=== PATIENT | female | born 1950 | race Caucasian/White ===

== ENCOUNTER 2017-03-12 14:22 | Emergency (ER) | payer MEDICARE, OTHER ==
[~2017-03-12] VITALS: Ht 160 cm; Wt 62.0 kg
[2017-03-12 14:24] VITALS: BP 133/73; PULSE 74; RESP 17; TEMP 97.8; O2SAT 96
[2017-03-12] MEDS ORDERED: OMEP20CA2 PO (16:35)
--- NOTE | 2017-03-12 16:37 | PD ---
HPI Chief Complaint: Respiratory Symptoms Time Seen by Provider: 16:33 Travel History International Travel<30 days: No Contact w/Intl Traveler<30days: No History of Present Illness HPI 66-year-old female presents to the emergency department for evaluation of cough , congestion, shortness of breath that started approximately 10 days ago. She states she went to an urgent care center 1 week ago and was given a prescription for an antibiotic which sounds like it is azithromycin, Z-Juma. Patient denies any fevers or chills. She has no chest pain. Patient reports diffuse mild abdominal pain. No diarrhea. No nausea or vomiting. Patient reports history of hereditary liver cirrhosis, COPD, GERD. Patient states that she has no albuterol inhaler, has not used in several days. Patient states that she came from [place] approximately 6 weeks ago. She states that she cannot live in the house that she is currently a due to to any people that live there and she believes that is how she became sick. PFSH Past Medical History Arthritis: Yes Medical other: Yes (cirrhos, high iron) Respiratory: Yes Tetanus Vaccination: < 5 Years Influenza Vaccination: Yes ?: Not Past Surgical History Hysterectomy: Yes Social History Alcohol Use: No Tobacco Use: Yes (1 ppd 3 hrs ago) Substance Use: No Allergies-Medications (Allergen,Severity, Reaction): Coded Allergies: Contrast Media (Verified Allergy, Severe, sob, hives, 03/12/17) Reported Meds & Prescriptions Reported Meds & Active Scripts Active Reported Omeprazole 20 Mg Cap Mg PO DAILY Review of Systems Except as stated in HPI: all other systems reviewed are Neg Physical Exam Narrative GENERAL: Well-nourished, well-developed female patient, ambulatory. Afebrile. SKIN: Focused skin assessment warm/dry. HEAD: Normocephalic. Atraumatic. EYES: No scleral icterus. No injection or drainage. NECK: Supple, trachea midline. No JVD or lymphadenopathy. CARDIOVASCULAR: Regular rate and rhythm without murmurs, gallops, or rubs. RESPIRATORY: Breath sounds equal bilaterally. No accessory muscle use. Lungs sounds diminished with expiratory wheezes noted GASTROINTESTINAL: Abdomen soft, non-tender, nondistended. No abdominal pain to palpation. MUSCULOSKELETAL: No cyanosis, or edema. BACK: Nontender without obvious deformity. No CVA tenderness. Data Data Last Documented VS Vital Signs Date Time Temp Pulse Resp B/P Pulse Ox O2 Delivery O2 Flow Rate FiO2 03/12/17 16:43 99 03/12/17 16:43 60 03/12/17 14:24 97.8 17 133/73 Orders Complete Blood Count With Diff (03/12/17 16:31) Comprehensive Metabolic Panel (03/12/17 16:31) Magnesium (Mg) (03/12/17 16:31) Ckmb (Isoenzyme) Profile (03/12/17 16:31) Troponin I (03/12/17 16:31) Urinalysis - C+S If Indicated (03/12/17 16:31) Iv Access Insert/Monitor (03/12/17 16:31) Electrocardiogram (03/12/17 16:31) Ecg Monitoring (03/12/17 16:31) Oximetry (03/12/17 16:31) Oxygen Administration (03/12/17 16:31) Chest, Single Ap (03/12/17 16:31) Sodium Chloride 0.9% Flush (Ns Flush) (03/12/17 16:45) Methylprednisolone So Succ Inj (Solumedr (03/12/17 16:45) Albuterol-Ipratropium Neb (Duoneb Neb) (03/12/17 16:45) Lipase (03/12/17 16:31) CKMB (03/12/17 17:07) CKMB% (03/12/17 17:07) Labs Laboratory Tests Test 03/12/17 17:07 White Blood Count 6.2 TH/MM3 Red Blood Count 3.65 MIL/MM3 Hemoglobin 12.8 GM/DL Hematocrit 38.0 % Mean Corpuscular Volume 104.2 FL Mean Corpuscular Hemoglobin 35.0 PG Mean Corpuscular Hemoglobin 33.6 % Concent Red Cell Distribution Width 15.5 % Platelet Count 67 TH/MM3 Mean Platelet Volume 10.5 FL Neutrophils (%) (Auto) 38.9 % Lymphocytes (%) (Auto) 46.2 % Monocytes (%) (Auto) 8.5 % Eosinophils (%) (Auto) 5.5 % Basophils (%) (Auto) 0.9 % Neutrophils # (Auto) 2.4 TH/MM3 Lymphocytes # (Auto) 2.9 TH/MM3 Monocytes # (Auto) 0.5 TH/MM3 Eosinophils # (Auto) 0.3 TH/MM3 Basophils # (Auto) 0.1 TH/MM3 CBC Comment AUTO DIFF Differential Comment AUTO DIFF CONFIRMED Platelet Estimate LOW Platelet Morphology Comment NORMAL Urine Color YELLOW Urine Turbidity HAZY Urine pH 5.0 Urine Specific [place] 1.014 Urine Protein NEG mg/dL Urine Glucose (UA) NEG mg/dL Urine Ketones NEG mg/dL Urine Occult Blood SMALL Urine Nitrite NEG Urine Bilirubin NEG Urine Urobilinogen LESS THAN 2.0 MG/DL Urine Leukocyte Esterase NEG Urine WBC 1 /hpf Urine Squamous Epithelial 2 /hpf Cells Urine Bacteria RARE /hpf Urine Hyaline Casts 1 /lpf Urine Mucus FEW /lpf Microscopic Urinalysis Comment CULT NOT INDICATED Sodium Level 142 MEQ/L Potassium Level 4.4 MEQ/L Chloride Level 112 MEQ/L Carbon Dioxide Level 21.2 MEQ/L Anion Gap 9 MEQ/L Blood Urea Nitrogen 8 MG/DL Creatinine 0.74 MG/DL Estimat Glomerular Filtration 78 ML/MIN Rate Random Glucose 78 MG/DL Calcium Level 8.7 MG/DL Magnesium Level 1.6 MG/DL Total Bilirubin 1.2 MG/DL Aspartate Amino Transf 56 U/L (AST/SGOT) Alanine Aminotransferase 32 U/L (ALT/SGPT) Alkaline Phosphatase 108 U/L Total Creatine Kinase 112 U/L Creatine Kinase MB 2.6 NG/ML Troponin I LESS THAN 0.02 NG/ML Total Protein 6.9 GM/DL Albumin 2.7 GM/DL Lipase 172 U/L [facility] Medical Decision Making Medical Screen Exam Complete: Yes Emergency Medical Condition: Yes Medical Record Reviewed: Yes Interpretation(s) Last Impressions Chest X-Ray 03/12/17 1631 Signed Impressions: Service Date/Time: Sunday, March 12, 2017 17:05 - CONCLUSION: No acute disease. Geoff Rubio MD Differential Diagnosis COPD exacerbation versus pneumonia versus URI Narrative Course 66-year-old female presents to the emergency department for evaluation of cough , congestion, shortness of breath that started approximately 10 days ago. EKG, CBC, CMP, CK, troponin, magnesium, lipase, UA are ordered and pending. Chest x- ray is ordered and pending. Patient is given DuoNeb 3 and Solu-Medrol 125 mg IV. EKG shows sinus rhythm, heart rate 71, no acute ST changes. CBC shows no acute abnormality, palatal 67, patient has known thrombocytopenia. CMP shows bilirubin 1.2, AST 56, no acute abnormality. Lipase is 172. CK is 112. Troponin is less than 0.02. Magnesium is 1.6. UA is negative for acute infection. Chest x-ray shows no acute disease. Physical, laboratory results, imaging findings are reassuring. Patient will be discharged short-term prescription for prednisone for COPD exacerbation. She is encouraged to follow-up with her primary care physician. She is return for any acute worsening of symptoms. Patient verbalizes agreement and understanding. Diagnosis Primary Impression: COPD exacerbation Referrals: Primary Care Physician call for appointment Patient Instructions: COPD (Chronic Obstructive Pulmonary Disease) (ED), General Instructions Additional Instructions: Take prednisone as directed until gone. Start this tomorrow. Use your albuterol inhaler as instructed as needed for shortness of breath/ wheezing. Follow-up with your primary care physician. Return to the emergency department for any acute worsening of symptoms. Med/Other Pt SpecificInfo: Prescription(s) given Scripts Prednisone 20 Mg Tab40 Mg PO DAILY 5 Days Ref 0 Prov:Meredith Bautista 03/12/17 Disposition: 01 DISCHARGE HOME Condition: Stable Meredith Bautista Mar 12, 2017 16:37
[2017-03-12 16:43] VITALS: PULSE 60
[2017-03-12] MEDS ORDERED: methylPREDNISolone SOD SUCC 125 MG/2 ML VIAL IVP ONE (16:45)
[2017-03-12] MEDS ORDERED: SODIUM CHLORIDE 0.9% FLUSH 10 ML FLUSH IVF PRN (16:45)
[2017-03-12] MEDS: RESP: ALBUTEROL 2.5 MG/IPRATROPIUM 0.5 MG NEB (SCH) INH ×3 (16:49→16:52)
[2017-03-12 17:20] LABS: AUTOMATED NEUTROPHIL # 2.4 TH/MM3 (1.8-7.7); BASOPHIL # 0.1 TH/MM3 (0-0.2); BASOPHIL % 0.9 % (0.0-2.0); EOSINOPHIL # 0.3 TH/MM3 (0-0.4); EOSINOPHIL % 5.5 % (0.0-4.0); LYMPH % 46.2 % (9.0-44.0); LYMPHOCYTE # 2.9 TH/MM3 (1.0-4.8); MEAN CELL VOLUME 104.2 FL (80.0-100.0); MEAN CORPUSCULAR HGB CONC 33.6 % (32.0-36.0); MONO % 8.5 % (0.0-8.0); NEUT % 38.9 % (16.0-70.0); PLATELET COUNT 67 TH/MM3 (150-450); RED BLOOD COUNT 3.65 MIL/MM3 (4.00-5.30); RED CELL DISTRIBUTION WIDTH 15.5 % (11.6-17.2); WHITE BLOOD COUNT 6.2 TH/MM3 (4.0-11.0)
[2017-03-12 17:24] LABS: HEMO FLAGS AUTO DIFF
[2017-03-12 17:26] LABS: BACTERIA, URINE RARE /hpf; BLOOD, URINE SMALL (NEG); COMMENT (UR) CULT NOT INDICATED; CULTURE IF INDICATED CULT NOT INDICATED; GLUCOSE,URINE NEG (NEG); HYALINE CAST, URINE 1 /lpf (RARE); KETONE, URINE NEG (NEG); MUCUS URINE FEW /lpf (OCC); NITRITE,URINE NEG (NEG); SQUAMOUS EPITHELIAL CELL URINE 2 /hpf (0-5); URINE COLOR YELLOW (YELLW/STRAW)
[2017-03-12 17:42] LABS: ALT (GPT) 32 U/L (10-53)
--- NOTE | 2017-03-12 17:45 | RADRPT ---
EXAM DATE/TIME: 03/12/2017 17:05 [facility] COMPARISON: No previous studies available for comparison. INDICATIONS : Shortness of breath for 1 week MEDICAL HISTORY : None. SURGICAL HISTORY : None. ENCOUNTER: Initial ACUITY: 1 week PAIN SCORE: 0/10 LOCATION: Bilateral chest FINDINGS: A single view of the chest demonstrates the lungs to be symmetrically aerated without evidence of mas s, infiltrate or effusion. The cardiomediastinal contours are unremarkable. Osseous structures are intact. CONCLUSION: No acute disease. Geoff Rubio MD on March 12, 2017 at 17:44 Board Certified Radiologist. This report was verified electronically.
[2017-03-12 18:15] LABS: PLATELET ESTIMATE SMEAR LOW (NORMAL); PLATELET MORPHOLOGY NORMAL (NORMAL); SCAN/DIFF AUTO DIFF CONFIRMED
[2017-03-12 18:20] LABS: ALKALINE PHOSPHATASE 108 U/L (45-117); ANION GAP 9 MEQ/L (5-15); AST (GOT) 56 U/L (15-37); BICARBONATE 21.2 MEQ/L (21.0-32.0); BLOOD UREA NITROGEN 8 MG/DL (7-18); CHLORIDE 112 MEQ/L (98-107); CREATINE KINASE 112 U/L (26-192); GLOMERULAR FILTRATION RATE 78 ML/MIN (>89); MAGNESIUM 1.6 MG/DL (1.5-2.5); SODIUM (NA) 142 MEQ/L (136-145); TOTAL BILIRUBIN ADULT 1.2 MG/DL (0.2-1.0)
[2017-03-12 18:30] LABS: POTASSIUM 4.4 MEQ/L (3.5-5.1)
[2017-03-12 18:32] LABS: CKMB 2.6 NG/ML (0.5-3.6)
[2017-03-12] MEDS ORDERED: PRED20 PO (18:41)
[2017-03-12 19:22] VITALS: BP 125/61
--- NOTE | 2017-03-13 12:26 | EKG ---
Date Performed: 03/12/2017 Time Performed: 18:28:48 PTAGE: 66 years EKG: Sinus rhythm NORMAL ECG NO PREVIOUS TRACING DOCTOR: Anand Hassan Interpretating Date/Time 03/13/2017 12:20:46
== END 2017-03-12 19:24 | disposition home or self-care (01) ==
LOC: NEPC 14:22
DX: J44.1 Chronic obstructive pulmonary disease with (acute) exacerbation (principal); F17.210 Nicotine dependence, cigarettes, uncomplicated
CPT/HCPCS: 71010; 80053; 81001; 82550; 82552; 83690; 83735; 84484; 85025; 93005; 94640; 94664; 96374; 99285; J2930